=== PATIENT | female | born 1960 | race Hispanic/Latino ===

== ENCOUNTER 2025-04-12 10:23 | Emergency (ER) | payer MEDICAID ==
[~2025-04-12] VITALS: Ht 147.3 cm; Wt 54.9 kg
--- NOTE | 2025-04-12 10:31 | ERN ---
ED Note History of Present Illness Stated Complaint: FALL Chief Complaint: Mechanical Fall Time Seen by MD: 10:24 Dictation: PATIENT IS A 64-YEAR-OLD FEMALE COMING IN WITH A SAME LEVEL SLIP FALL ON WET FLOOR LANDING ON HER LEFT SIDE. SHE IS COMPLAINING OF LEFT SHOULDER, LEFT KNEE, LEFT HIP PAIN. SHE IS FULLY AMBULATORY. NO BLOOD THINNERS NO HEAD INJURY NO SPINE PAIN AND NO TRAUMA ALERT CRITERIA. DISTAL NEUROVASCULAR CMS INTACT TO ALL EXTREMITIES. SHE STATES I JUST WANT TO MAKE SURE EVERYTHING IS OKAY BECAUSE OF HAD BOTH OF MY KNEES REPLACED. HE HAS TAKEN NOTHING PRIOR TO ARRIVAL FOR PAIN Allergies: Coded Allergies: atorvastatin (Unverified Allergy, Unknown, 04/12/25) sulfamethoxazole (Unverified Allergy, Unknown, 04/12/25) trimethoprim (Unverified Allergy, Unknown, 04/12/25) Past Medical History History: Not Applicable RN Note Reviewed/Agreed w/PFSH: Yes Review of System Dictation CONSTITUTIONAL: NEGATIVE EXCEPT FOR HPI HEAD/FACE: NEGATIVE EXCEPT FOR HPI EENT: NEGATIVE EXCEPT FOR HPI RESPIRATORY: NEGATIVE EXCEPT FOR HPI GASTROINTESTINAL/ABDOMINAL: NEGATIVE EXCEPT FOR HPI GENITOURINARY: NEGATIVE EXCEPT FOR HPI MUSCULOSKELETAL: NEGATIVE EXCEPT FOR HPI LEFT SHOULDER SLIP KNEE/LEFT HIP PAIN INTEGUMENTARY: NEGATIVE EXCEPT FOR HPI NEUROLOGICAL/PSYCH: NEGATIVE EXCEPT FOR HPI HEMATOLOGIC/LYMPHATIC: NEGATIVE EXCEPT FOR HPI ALL SYSTEMS NEGATIVE, EXCEPT NOTED ABOVE. 13 POINT REVIEW OF SYSTEMS ASSESSED AND ALL NEGATIVE EXCEPT FOR ABOVE. Initial Vital Sign VS Vital Signs Date Time Temp Pulse Resp B/P (MAP) Pulse Ox O2 Delivery O2 Flow Rate FiO2 04/12/25 10:25 97.2 76 16 126/67 99 Room Air 0 04/12/25 10:31 21 Physical Exam Dictation VITAL SIGNS REVIEWED GENERAL APPEARANCE: ALERT, ORIENTED X 3, MILD ACUTE DISTRESS, WELL DEVELOPED, NOURISHED. HEAD AND FACE: NON-TRAUMATIC. EYES: PERRL, PINK CONJUNCTIVAS, EYELID NO TRAUMA, ANTERIOR CHAMBER WITH ARCUS SENILIS. EARS: PINNAS INTACT AND NO SIGNS OF TRAUMA OR ERYTHEMA EAR CANALS CLEAR AND NO DISCHARGE TM NO ERYTHEMA NOSE: NO DISCHARGE, NO BLEEDING. OROPHARYNX: MOUTH NORMAL, TONGUE PINK, PHARYNX CLEAR,NO ERYTHEMA, TONSILS NO EXUDATES, NO ABSCESSES NOTED, MUCOUS MEMBRANE MOIST NECK: SUPPLE, NON-TENDER, NO THYROMEGALY, NO MASSES, NO JVD, NO BRUITS BREAST:DEFERRED CHEST:NO TENDERNESS, NO CREPITUS, NO PARADOXICAL MOVEMENT, NO RETRACTIONS LUNGS:CLEAR, WELL-VENTILATED, SYMMETRIC, NO RALES, NO WHEEZING, NO RHONCHI, NO STRIDOR, GOOD BREATH SOUNDS BILATERALLY HEART: REGULAR RATE, REGULAR RHYTHM, NO MURMUR, NO GALLOPS VASCULAR: NO PERIPHERAL EDEMA, ABDOMEN: SOFT, POSITIVE BOWEL SOUNDS, NONDISTENDED, NO GUARDING, NONTENDER, NO REBOUND, NO MASSES NO HEPATOMEGALY, NO SPLENOMEGALY, NO DUBON'S SIGN, NO HERNIAS. RECTAL: DEFERRED GENITAL: DEFERRED NEUROLOGICAL: NORMAL SPEECH, MOTOR FUNCTION INTACT, SENSORY FUNCTION INTACT MUSCULOSKELETAL: NECK NONTENDER, FULL RANGE OF MOTION, BACK NONTENDER, FULL RANGE OF MOTION, EXTREMITIES: MILD TENDERNESS TO LEFT SHOULDER/LEFT HIP AND LEFT KNEE. FULL RANGE OF MOTION TO ALL EXTREMITIES. NO SHORTENING OR ROTATION OF LEFT LEG. SKIN INTACT SKIN: COLOR PINK, DRY, NO TURGOR, NO RASH, NO LACERATIONS, NO ABRASIONS, NO CONTUSIONS. LYMPHATIC: DEFERRED Results (Laboratory/Radiology) Laboratory/Radiology LEFT SHOULDER X-RAY NEGATIVE FOR LEFT KNEE TOTAL KNEE REPLACEMENT INTACT NO FRACTURE LEFT HIP X-RAY NEGATIVE Labs Reviewed?: Yes ED Course ED Course Orders Procedure Category Date Status Time Shoulder Comp 2+Vws Lt RAD 04/12/25 Taken 10:26 Knee 3vws Lt RAD 04/12/25 Taken 10:26 Hip Unilat 2-3vw Left RAD 04/12/25 Taken 10:26 Acetaminophen 500mg PHA 04/12/25 Complete Tab (Tylenol 500mg T 10:30 Current Medications Medications (Trade) Dose Ordered Sig/Tea Route PRN Reason Start Time Stop Time Status Last Admin Dose Admin Acetaminophen (TYLenol 500MG TAB) 1,000 mg ONCE ONCE PO 04/12/25 10:30 04/12/25 10:31 DC 04/12/25 10:58 Vital Signs Date Time Temp Pulse Resp B/P (MAP) Pulse Ox O2 Delivery O2 Flow Rate FiO2 04/12/25 10:31 97.2 76 16 126/67 99 Room Air* 0 21 04/12/25 10:25 97.2 76 16 126/67 99 Room Air 0 1135/PATIENT NEUROLOGICALLY INTACT PAIN IS REDUCED WITH TYLENOL. WE WILL REFER HER TO HER PRIMARY CARE DOCTOR FOR MANAGEMENT. Medical Decision Making MDM MEDICAL DISCHARGE MAKING BASED ON PAIN MANAGEMENT AND X-RAYS OF LEFT SHOULDER HIP AND KNEE. X-RAYS NEGATIVE LEFT TOTAL KNEE REPLACEMENT INTACT PAIN IS REDUCED AND WE WILL DISCHARGE PATIENT HOME WITH IBUPROFEN AND TOLD TO SEE HER PRIMARY CARE DOCTOR. DX & DISP Disposition: Discharge Departure Impression: Primary Impression: Contusion of left shoulder, initial encounter Additional Impressions: Contusion of left hip, initial encounter, Contusion of left knee, initial encounter, Fall Condition: Stable Scripts Ibuprofen (Ibuprofen) 600 Mg Tablet 600 MG PO Q6H PRN for PAIN, #30 TAB Prov: BISI MENDOZA NP 04/12/25 Additional Instructions: FOLLOW-UP WITH PRIMARY CARE PROVIDER IN 1 TO 2 DAYS. TAKE MEDICATIONS DIRECTED HERE IN THE EMERGENCY ROOM. OKAY TO CONTINUE HOME MEDICATIONS UNLESS OTHERWISE DISCUSSED DURING YOUR VISIT IN THE EMERGENCY ROOM TODAY. RETURN TO YOUR NEAREST EMERGENCY ROOM IF SYMPTOMS WORSEN OR IF THERE IS NO IMPROVEMENT. CALL 911 IF YOU NEED IMMEDIATE ASSISTANCE. TAKE TYLENOL OR MOTRIN [id number] NEEDED AND IF NO CONTRAINDICATIONS ARE PRESENT. INCREASE ORAL HYDRATION. A WOUND CULTURE OR URINE CULTURE WAS ORDERED HERE IN THE EMERGENCY ROOM DEPARTMENT PLEASE FOLLOW-UP WITH PRIMARY CARE PROVIDER AND ADVISE THEM TO GET REPEAT PORTS FROM OUR FACILITY. IF YOU HAD ANY MARLYN WRAP/SPLINTS THAT WERE APPLIED HERE, PLEASE DO NOT REMOVE THEM UNTIL YOU SEE YOUR PRIMARY CARE OR SPECIALTY. COOL COMPRESSES TO PAIN THREE TO 4 TIMES A DAY. DIET AND ACTIVITY TOLERATED. FOLLOW UP WITH YOUR PRIMARY CARE DOCTOR NEEDED Referrals: SILVIA SHEPPARD (PCP) Time of Disposition: 11:37 I have reviewed the case, and I agree with, Diagnosis and Plan BISI MENDOZA NP Apr 12, 2025 10:31
[2025-04-12 11:37] VITALS: BP 124/64; PULSE 74; RESP 16; TEMP 98.1; O2SAT 99
[2025-04-12] MEDS ORDERED: IBUP-1492 PO (11:38)
--- NOTE | 2025-04-12 11:45 | HMCIMG ---
SHOULDER COMP 2+VWS LT REASON: LEFT ANTERIOR LATERAL SHOULDER PAIN STATUS POST FALL TECHNIQUE: 2 views were obtained. FINDINGS: There is no evidence of fracture or dislocation. There is no joint effusion. The soft tissues appear unremarkable. There is no evidence of a radiopaque foreign body. There is mild narrowing of the left AC joint. IMPRESSION: No acute findings. 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
--- NOTE | 2025-04-12 11:45 | HMCIMG ---
EXAM: CR left Hip, 2 View. CLINICAL HISTORY: LEFT HIP PAIN STATUS POST SAME LEVEL FALL COMPARISON: None provided. FINDINGS: BONES: No acute fracture or aggressive appearing osseous lesion. JOINTS: No dislocation. The joint spaces are normal. SOFT TISSUES: The soft tissues are unremarkable. IMPRESSION: No acute osseous abnormality. /[place]
--- NOTE | 2025-04-12 11:45 | HMCIMG ---
EXAM: CR left Knee, 2 View. CLINICAL HISTORY: LEFT KNEE PAIN STATUS POST FALL. HISTORY OF TOTAL KNEE REPLACED COMPARISON: None provided. FINDINGS: Cemented left total knee arthroplasty is in near-anatomic alignment. No periprosthetic fracture appreciated. Small left knee joint effusion. Soft tissues are within normal limits. IMPRESSION: 1. No acute findings. Cemented left total knee arthroplasty in near-anatomic alignment with small joint effusion. /[place]
== END 2025-04-12 11:47 | disposition home or self-care (01) ==
LOC: EDH 10:23
DX: S40.012A Contusion of left shoulder, initial encounter (principal); S70.02XA Contusion of left hip, initial encounter; S80.02XA Contusion of left knee, initial encounter; M19.90 Unspecified osteoarthritis, unspecified site; Z88.1 Allergy status to other antibiotic agents; Z88.2 Allergy status to sulfonamides; Z96.652 Presence of left artificial knee joint; W01.0XXA Fall on same level from slipping, tripping and stumbling without subsequent striking against object, initial encounter; Y93.89 Activity, other specified; Y92.89 Other specified places as the place of occurrence of the external cause; Y99.8 Other external cause status
CPT/HCPCS: 73030; 73502; 73562; 99284